=== PATIENT | male | born 1965 | race Caucasian/White ===

== ENCOUNTER 2018-08-01 03:06 | Emergency (ER) | payer BC ==
[~2018-08-01] VITALS: Ht 167.6 cm; Wt 70.8 kg
[~2018-08-01 03:06] MED LIST: ALLO300T PO; FENO54TA PO; INSU100C4 SQ; LISI-334 PO; LISI2.5T PO; METF10007 PO; METO50TA29 PO; PIOG15TA42 PO; PREG300C PO
[2018-08-01] MEDS ORDERED: IV NORMAL SALINE 1,000ML 1,000 ML IV ONE (03:15)
[2018-08-01] MEDS ORDERED: ONDANSETRON PF 4 MG/2 ML VIAL. IV ONE ×2 (03:15→03:45)
[2018-08-01] MEDS ORDERED: KETOROLAC 30 MG/ML VIAL. IV ONE (03:15)
--- NOTE | 2018-08-01 03:21 | PHYS DOC ---
Past History Past Medical History: Diabetes, High Cholesterol, Hypertension, Other Past Surgical History: Other Alcohol Use: Occasionally Drug Use: None Adult General Chief Complaint Chief Complaint: FLANK PAIN HPI HPI 52-year-old male presents with sudden onset left flank pain. Patient was awake and left-sided flank pain. He thought it might be an exacerbation of his chronic low back pain. He sat in a chair for about an hour and the pain got worse and worse. He describes it as a deep cramping and throbbing sensation. It radiates from his left flank to left abdomen. He has had nausea and dry heaves. He denies fever or chills. He denies dysuria or urinary frequency. He has no history of kidney stones in the past. He has had cervical surgery and gastric bypass. Review of Systems Review of Systems Constitutional: Denies fever or chills [] Eyes: Denies change in visual acuity, redness, or eye pain [] HENT: Denies nasal congestion or sore throat [] Respiratory: Denies cough or shortness of breath [] Cardiovascular: No additional information not addressed in HPI [] GI: Denies abdominal pain, nausea, vomiting, bloody stools or diarrhea [] : Denies dysuria or hematuria [] Musculoskeletal: Left flank pain[] Integument: Denies rash or skin lesions [] Neurologic: Denies headache, focal weakness or sensory changes [] Endocrine: Denies polyuria or polydipsia [] All other systems were reviewed and found to be within normal limits, except as documented in this note. Current Medications Current Medications Current Medications Medications (Trade) Dose Ordered Sig/Karlos Start Time Stop Time Status Last Admin Dose Admin Ketorolac Tromethamine (Toradol 30mg Vial) 30 mg 1X ONCE 08/01/18 03:15 08/01/18 03:16 UNV Ondansetron HCl (Zofran) 4 mg 1X ONCE 08/01/18 03:15 08/01/18 03:16 UNV Sodium Chloride 1,000 ml @ 1,000 mls/hr 1X ONCE 08/01/18 03:15 08/01/18 04:14 UNV Allergies Allergies Allergies Coded Allergies Type Severity Reaction Last Updated Verified No Known Drug Allergies 07/11/14 No Physical Exam Physical Exam Constitutional: Well developed, well nourished, mild acute distress, non-toxic appearance. Appears to be in pain.[] HENT: Normocephalic, atraumatic, bilateral external ears normal, oropharynx moist, no oral exudates, nose normal. [] Eyes: PERRLA, EOMI, conjunctiva normal, no discharge. [] Neck: Normal range of motion, no tenderness, supple, no stridor. [] Cardiovascular:Heart rate regular rhythm, no murmur [] Lungs & Thorax: Bilateral breath sounds clear to auscultation [] Abdomen: Bowel sounds normal, soft, no tenderness, no masses, no pulsatile masses. [] Skin: Warm, dry, no erythema, no rash. [] Back: Left sided CVA tenderness. [] Extremities: No tenderness, no cyanosis, no clubbing, ROM intact, no edema. [] Neurologic: Alert and oriented X 3, normal motor function, normal sensory function, no focal deficits noted. [] Psychologic: Affect normal, judgement normal, mood normal. [] EKG EKG [] Radiology/Procedures Radiology/Procedures [] Impressions: PQRS Compliance Statement: One or more of the following individualized dose reduction techniques were utilized for this examination: 1. Automated exposure control 2. Adjustment of the mA and/or kV according to patient size 3. Use of iterative reconstruction technique CT ABDOMEN PELVIS WO CONTRAST Clinical Indication: SEVERE LEFT FLANK PAIN ONSET 2 HOURS AGO Comparison: None. Technique: Helical CT imaging of the abdomen and pelvis is performed without IV or oral contrast. Findings: Lung bases are clear. There is coronary artery disease. Cardiac size normal. Postsurgical changes of gastric bypass. Liver, gallbladder, spleen, pancreas, adrenal glands, and abdominal aorta are normal. There are multiple bilateral nonobstructing renal calculi. There is no right hydronephrosis. There is small left renal cyst. There is moderate left perinephric stranding and mild left hydroureteronephrosis secondary to a 5 mm calculus at the pelvic brim, image 88. No dilated small bowel. The appendix is normal. Scattered stool in the colon. No colon wall thickening. No abdominal adenopathy or free fluid. Urinary bladder is normal. Prostate size upper limits of normal. No pelvic free fluid. No inguinal adenopathy. No acute bone abnormality. IMPRESSION: 1. Mild left obstructive uropathy secondary to a 5 mm ureteral calculus at the pelvic brim. 2. Multiple bilateral nonobstructing renal calculi. Electronically signed by: Vniny Franco MD (08/01/2018 3:50 AM) [facility] DICTATED AND SIGNED BY: VINNY FRANCO MD DATE: 08/01/18 0343 CC: AMINA BEASLEY DO; PREM ENGLISH MD Course & Med Decision Making Course & Med Decision Making Pertinent Labs and Imaging studies reviewed. (See chart for details) The patient has required 30 mg of Toradol and 1 mg of Dilaudid control his pain. He needed 8 mg of Zofran control his nausea and vomiting. The CT scan shows an obstructing 5 mm stone in the left ureter with perinephric stranding. His urine is pending but I will still treat him with Rocephin. Given the size of the cell and the fact that is obstructing, the patient likely needs urological procedure. I discussed this with the patient and he is in agreement with transfer to [facility]. I will admit the patient under Dr. Martinez who will consult urology as appropriate. The patient does not have a UTI. [] Dragon Disclaimer Dragon Disclaimer This electronic medical record was generated, in whole or in part, using a voice recognition dictation system. Departure Departure: Referrals: PREM ENGLISH MD (PCP) AMINA BEASLEY DO Aug 01, 2018 03:21
[2018-08-01 03:36] LABS: BASO % 1 % (0-3); EOS # 0.1 x10^3/uL (0.0-0.7); EOS % 3 % (0-3); HEMATOCRIT 45.8 % (39.0-53.0); HEMOGLOBIN 15.7 g/dL (13.0-17.5); LYMPH # 1.7 x10^3/uL (1.0-4.8); LYMPH % 31 % (24-48); MEAN CORPUSCULAR HEMOGLOBIN 31 pg (25-35); MEAN CORPUSCULAR HGB CONC 34 g/dL (31-37); MEAN CORPUSCULAR VOLUME 89 fL (79-100); MONO # 0.4 x10^3/uL (0.0-1.1); MONO % 7 % (0-9); NEUT # 3.3 x10^3uL (1.8-7.7); NEUT % 59 % (31-73); PLATELET COUNT 195 x10^3/uL (140-400); RED BLOOD COUNT 5.13 x10^6/uL (4.30-5.70); RED CELL DISTRIBUTION WIDTH 13.5 % (11.5-14.5); WHITE BLOOD COUNT 5.5 x10^3/uL (4.0-11.0)
[2018-08-01] MEDS ORDERED: HYDROmorphone PF 1 MG/ML DISP.SYRIN IV ONE ×2 (03:45→04:30)
--- NOTE | 2018-08-01 03:53 | RAD ---
PQRS Compliance Statement: One or more of the following individualized dose reduction techniques were utilized for this examination: 1. Automated exposure control 2. Adjustment of the mA and/or kV according to patient size 3. Use of iterative reconstruction technique CT ABDOMEN PELVIS WO CONTRAST Clinical Indication: SEVERE LEFT FLANK PAIN ONSET 2 HOURS AGO Comparison: None. Technique: Helical CT imaging of the abdomen and pelvis is performed without IV or oral contrast. Findings: Lung bases are clear. There is coronary artery disease. Cardiac size normal. Postsurgical changes of gastric bypass. Liver, gallbladder, spleen, pancreas, adrenal glands, and abdominal aorta are normal. There are multiple bilateral nonobstructing renal calculi. There is no right hydronephrosis. There is small left renal cyst. There is moderate left perinephric stranding and mild left hydroureteronephrosis secondary to a 5 mm calculus at the pelvic brim, image 88. No dilated small bowel. The appendix is normal. Scattered stool in the colon. No colon wall thickening. No abdominal adenopathy or free fluid. Urinary bladder is normal. Prostate size upper limits of normal. No pelvic free fluid. No inguinal adenopathy. No acute bone abnormality. IMPRESSION: 1. Mild left obstructive uropathy secondary to a 5 mm ureteral calculus at the pelvic brim. 2. Multiple bilateral nonobstructing renal calculi. Electronically signed by: Vinny Franco MD (08/01/2018 3:50 AM) [facility]
[2018-08-01 04:07] LABS: ALBUMIN 4.3 g/dL (3.4-5.0); ALBUMIN/GLOBULIN RATIO 1.4 (1.0-1.7); CALCIUM 8.6 mg/dL (8.5-10.1); CREATININE 1.2 mg/dL (0.7-1.3); GFR 63.1; POTASSIUM 3.8 mmol/L (3.5-5.1); TOTAL BILIRUBIN 0.5 mg/dL (0.2-1.0); TOTAL PROTEIN 7.4 g/dL (6.4-8.2)
[2018-08-01] MEDS ORDERED: cefTRIAXone IV Push 1 GM VIAL. IVP ONE ×2 (04:30→04:36)
[2018-08-01] MEDS ORDERED: cefTRIAXone SODIUM 1 GM VIAL IV ONE (04:35)
[2018-08-01] MEDS ORDERED: IV NORMAL SALINE 50ML 50 ML ONE (04:37)
[2018-08-01 04:42] LABS: BACTERIA,URINE 0 /HPF (0-FEW); BILIRUBIN,URINE NEG (NEG); CLARITY,URINE CLEAR; COLOR,URINE YELLOW; GLUCOSE,URINE NEG (NEG); NITRITE,URINE NEG (NEG); RBC,URINE 0 /HPF (0-2); SQUAMOUS EPITHELIAL CELL,UR OCC /LPF; UROBILINOGEN,URINE 0.2 mg/dL (0.2 mg/dL); WBC,URINE RARE /HPF (0-4)
[2018-08-01 04:45] VITALS: BP 146/86
== END 2018-08-01 05:14 | disposition short-term general hospital (02) ==
LOC: ER 03:06
DX: N13.2 Hydronephrosis with renal and ureteral calculous obstruction (principal); G89.29 Other chronic pain; M54.5 Low back pain; E11.9 Type 2 diabetes mellitus without complications; E78.00 Pure hypercholesterolemia, unspecified; I10 Essential (primary) hypertension
CPT/HCPCS: 36415; 74176; 80053; 81001; 85025; 96361; 96374; 96375; 96376; 99285; J0696; J1170; J1885; J2405; J7030

== ENCOUNTER 2019-05-24 21:44 | Emergency (ER) | payer BC ==
[~2019-05-24] VITALS: Ht 167.6 cm; Wt 70.8 kg
--- NOTE | 2019-05-24 21:56 | PHYS DOC ---
Past History Past Medical History: Diabetes, High Cholesterol, Hypertension Past Surgical History: Cervical Fusion, Gastric Bypass, Other Alcohol Use: None Drug Use: None Adult General Chief Complaint Chief Complaint: FLANK PAIN HPI HPI Patient is a 53-year-old male p/w low back pain radiates to left side similoar to prior kidney stone yesterday noticed blood in urine so came in to get checked out has required lithotripsy in past. no fever felt chills no vomting no anterior abdo pain Review of Systems Review of Systems Constitutional: Denies fever or chills [] Eyes: Denies change in visual acuity, redness, or eye pain [] HENT: Denies nasal congestion or sore throat [] Respiratory: Denies cough or shortness of breath [] Integument: Denies rash or skin lesions [] Neurologic: Denies headache, focal weakness or sensory changes [] Endocrine: Denies polyuria or polydipsia [] All other systems were reviewed and found to be within normal limits, except as documented in this note. Allergies Allergies Allergies Coded Allergies Type Severity Reaction Last Updated Verified No Known Drug Allergies 07/11/14 No Physical Exam Physical Exam Constitutional: Well developed, well nourished, no acute distress, non-toxic appearance. [] HENT: Normocephalic, atraumatic, bilateral external ears normal, oropharynx moist, no oral exudates, nose normal. [] Eyes: PERRLA, EOMI, conjunctiva normal, no discharge. [] Neck: Normal range of motion, no tenderness, supple, no stridor. [] Abdomen: Bowel sounds normal, soft, no tenderness, no masses, no pulsatile masses. [] Skin: Warm, dry, no erythema, no rash. [] Back:left cva ttp. noted. Extremities: No tenderness, no cyanosis, no clubbing, ROM intact, no edema. [] Neurologic: Alert and oriented X 3, normal motor function, normal sensory function, no focal deficits noted. [] Psychologic: Affect normal, judgement normal, mood normal. [] Current Patient Data Vital Signs * None Temperature (Fahrenheit): * 97.7 degrees F (97.6-99.5) Patient Temperature * 97.7 degrees F (97.5-99.5) Temperature Source * Oral Blood Pressure Systolic * 149 mm Hg (100-140) H Blood Pressure Diastolic * 75 mm Hg (60-100) Blood Pressure Mean * 99 mm Hg Blood Pressure Location * Right Arm Blood Pressure Source * Automatic Cuff Pulse Rate * 82 beats per minute (60-90) Pulse Assessment Method * Monitor Respiratory Rate * 18 breaths per minute (12-24) Oxygen Delivery Method * Room Air Bedside Pulse Oximetry * 97 % Treatment Prior to Arrival * Yes - tylenol 2 hrs ago Complaint of Pain EKG EKG [] Radiology/Procedures Radiology/Procedures [] Impressions: Impression: 1. There are bilateral renal calculi, no hydronephrosis or ureteral calculus. Electronically signed by: Randy Flores MD (05/24/2019 10:56 PM) [facility] Course & Med Decision Making Course & Med Decision Making Pertinent Labs and Imaging studies reviewed. (See chart for details) []53-year-old male with known nephrolithiasis percent with back pain and report of hematuria. Good news is the ER workup is essentially negative. There is intrarenal stones multiple actually so it's possible that he may have passed a recent stone no hydronephrosis is noted. No UTI creatinine is reasonable. Vitals are also reassuring overall patient was having some continued discomfort so we did give a dose of morphine is possible this is musculoskeletal type pain patient is neurologically intact recommend a follow-up with primary care doctor and/or urology as needed although again no evidence of an acute ureteral stone at this time. Dragon Disclaimer Dragon Disclaimer This electronic medical record was generated, in whole or in part, using a voice recognition dictation system. Departure Departure: Impression: Primary Impression: Back pain Disposition: 01 HOME, SELF-CARE Condition: STABLE Referrals: PREM ENGLISH MD (PCP) Scripts Hydrocodone Bit/Acetaminophen (NORCO 5-325 TABLET) 1 Each Tablet 1-2 TAB PO Q4-6HRS PRN for PAIN, #10 TAB Prov: LAURA AVENDANO MD 05/24/19 LAURA AVENDANO MD May 24, 2019 21:56
[2019-05-24] MEDS ORDERED: IV NORMAL SALINE 1,000ML 1,000 ML IV ONE (22:15)
[2019-05-24] MEDS ORDERED: KETOROLAC 15 MG/ML VIAL. IV ONE (22:15)
[2019-05-24 22:27] LABS: BASO % 1 % (0-3); EOS # 0.1 x10^3/uL (0.0-0.7); EOS % 1 % (0-3); HEMATOCRIT 42.3 % (39.0-53.0); HEMOGLOBIN 14.2 g/dL (13.0-17.5); LYMPH # 1.6 x10^3/uL (1.0-4.8); LYMPH % 28 % (24-48); MEAN CORPUSCULAR HEMOGLOBIN 30 pg (25-35); MEAN CORPUSCULAR HGB CONC 34 g/dL (31-37); MEAN CORPUSCULAR VOLUME 90 fL (79-100); MONO # 0.4 x10^3/uL (0.0-1.1); MONO % 8 % (0-9); NEUT # 3.5 x10^3uL (1.8-7.7); NEUT % 63 % (31-73); PLATELET COUNT 237 x10^3/uL (140-400); RED BLOOD COUNT 4.69 x10^6/uL (4.30-5.70); RED CELL DISTRIBUTION WIDTH 13.4 % (11.5-14.5); WHITE BLOOD COUNT 5.6 x10^3/uL (4.0-11.0)
[2019-05-24 22:46] LABS: ALBUMIN 3.7 g/dL (3.4-5.0); ALBUMIN/GLOBULIN RATIO 1.3 (1.0-1.7); CALCIUM 8.7 mg/dL (8.5-10.1); CREATININE 1.1 mg/dL (0.7-1.3); GFR 69.5; POTASSIUM 3.2 mmol/L (3.5-5.1); TOTAL BILIRUBIN 0.2 mg/dL (0.2-1.0); TOTAL PROTEIN 6.6 g/dL (6.4-8.2)
--- NOTE | 2019-05-24 22:59 | RAD ---
CT Abdomen and Pelvis without contrast History: Left flank pain Technique: Noncontrast CT imaging was performed of the abdomen and pelvis. Multiplanar images are reviewed. Exposure: One or more of the following individualized dose reduction techniques were utilized for this examination: 1. Automated exposure control 2. Adjustment of the mA and/or kV according to patient size 3. Use of iterative reconstruction technique. Comparison: August 01, 2018 Findings: There is some motion degradation. There is no ureteral calculus or hydronephrosis of either kidney. There are about 10 left renal calculi with the largest about 0.5 cm. There are also about 10 right renal calculi with the largest 0.3 cm. There is mid left renal cyst about 1.3 cm. Accurate evaluation of abdominal visceral organs is limited without intravenous contrast. There is no obvious abnormality of the spleen, liver, or pancreas. Gallbladder is present without obvious intraluminal abnormality by CT. There is no adrenal nodularity. Accurate evaluation of bowel is limited without oral contrast. There are again postsurgical changes of the stomach. There is no significant free air, free fluid, bowel dilatation. Normal appendix is visualized. Prostate gland is somewhat prominent as seen previously, some associated calcifications. There is facet degenerative change greatest on the right at L5-S1. Impression: 1. There are bilateral renal calculi, no hydronephrosis or ureteral calculus. Electronically signed by: Randy Flores MD (05/24/2019 10:56 PM) [facility]
[2019-05-24 23:05] LABS: BACTERIA,URINE 0 /HPF (0-FEW); BILIRUBIN,URINE NEG (NEG); CLARITY,URINE CLEAR; COLOR,URINE YELLOW; GLUCOSE,URINE NEG (NEG); NITRITE,URINE NEG (NEG); RBC,URINE 0 /HPF (0-2); SQUAMOUS EPITHELIAL CELL,UR OCC /LPF; UROBILINOGEN,URINE 0.2 mg/dL (0.2 mg/dL); WBC,URINE OCC /HPF (0-4)
[2019-05-24] MEDS ORDERED: HYDR-3165 PO (23:21)
[2019-05-24 23:27] VITALS: BP 139/85
[2019-05-24] MEDS ORDERED: MORPHINE SULFATE 4 MG/ML DISP.SYRIN. IV ONE (23:30)
[2019-05-24] MEDS ORDERED: ONDANSETRON PF 4 MG/2 ML VIAL. IV ONE (23:45)
[2019-05-24] MEDS ORDERED: CYCLOBENZAPRINE 10 MG TABLET. PO ONE (23:45)
== END 2019-05-25 00:10 | disposition home or self-care (01) ==
LOC: ER 21:44
DX: M54.5 Low back pain (principal); R31.9 Hematuria, unspecified; N20.0 Calculus of kidney; E11.9 Type 2 diabetes mellitus without complications; E78.00 Pure hypercholesterolemia, unspecified; I10 Essential (primary) hypertension; Z87.442 Personal history of urinary calculi; Z98.84 Bariatric surgery status
CPT/HCPCS: 36415; 74176; 80053; 81001; 85025; 96374; 96375; 99285; J1885; J2270; J2405; J3010; J7030

== ENCOUNTER → 2021-03-27 | Outpatient (CLI) | payer BC ==
[~2021-03-27] MED LIST changes: +HYDR-3165 PO; -LISI-334 PO; +LISI20TA18 PO
--- NOTE | 2021-03-27 08:10 | RAD ---
Single view pelvis two-view bilateral hip dated 03/27/2021. No comparison available. CLINICAL INDICATION: Pain. FINDINGS: AP view of pelvis and two-view bilateral hips show normal bony alignment. No displaced fracture. Pelv ic ring is intact. There is mild degenerative change of the bilateral hip joint, right greater than l eft. No periostitis or bone destruction. IMPRESSION: 1. No acute radiographic abnormality. 2. Mild bilateral hip DJD. Electronically signed by: Blane Cadet MD (03/27/2021 8:08 AM) [id number]
== END ==
LOC: PMG 07:50
PROVIDERS: ATTEND Nurse Practitioner Family
DX: M16.0 Bilateral primary osteoarthritis of hip (principal)
CPT/HCPCS: 73521

== ENCOUNTER → 2021-07-03 | Outpatient (CLI) | payer BC ==
[~2021-07-03] MED LIST changes: -LISI2.5T PO; +LISI2.5T12 PO
--- NOTE | 2021-07-03 08:39 | RAD ---
EXAM: Left elbow, 3 views. HISTORY: Pain. COMPARISON: None. FINDINGS: 3 views of the left elbow are obtained. There is no fracture, dislocation or subluxation. T here is minimal cortical irregularity involving the radial head which is likely degenerative. There a re tiny corticated ossicles adjacent to the lateral epicondyle and there is mild osseous excrescence along the medial epicondyle, also degenerative in etiology. There is minimal enthesopathy along the o lecranon. There is soft tissue prominence overlying the olecranon. IMPRESSION: 1. No acute osseous finding. 2. Minimal degenerative change involving the left elbow. 3. Soft tissue prominence overlying the olecranon. This may be physiologic. If there is a history of recent trauma, this may be a hematoma. The differential also includes olecranon bursitis. Correlate w ith the site of reported pain. Electronically signed by: Mayela Mtz MD (07/03/2021 8:36 AM) [id number]
== END ==
LOC: PMG 08:20
PROVIDERS: ATTEND Nurse Practitioner Family
DX: M70.22 Olecranon bursitis, left elbow (principal); M77.8 Other enthesopathies, not elsewhere classified; Y93.89 Activity, other specified
CPT/HCPCS: 73080